=== PATIENT | male | born 1975 | race Hispanic/Latino ===

== ENCOUNTER 2022-04-23 17:16 | Emergency (ER) | payer SELFPAY ==
[~2022-04-23] VITALS: Ht 170.2 cm; Wt 75.5 kg
[2022-04-23] MEDS ORDERED: LIDOCAINE 1% 5ML-MPF INJ ONE (17:45)
[2022-04-23] MEDS ORDERED: TETANUS/DIPHTHERIA TOX ADULT 0.5 ML SYR IM ONE (17:45)
[2022-04-23] MEDS ORDERED: LIDOCAINE HCL 1% LOCAL INJ 20 ML VIAL ONE (18:26)
[2022-04-23] MEDS ORDERED: TETANUS/DIPHTHERIA TOX ADULT 0.5 ML SYR ONE (18:45)
[2022-04-23] MEDS ORDERED: Vancomycin IV 1 GM in SODIUM CHLORIDE 0.9% 250ML 250 ML IV ONE (18:45)
[2022-04-23] MEDS ORDERED: SODIUM CHLORIDE 0.9% 100 ML ONE (19:05)
[2022-04-23] MEDS ORDERED: Vancomycin IV 1 GM VIAL ONE (19:05)
[2022-04-23] MEDS ORDERED: SODIUM CHLORIDE 0.9% 250ML 250 ML ONE (19:05)
[2022-04-23] MEDS ORDERED: PIPERACILLIN/TAZOBACTAM 3.375 GM VIAL ONE (19:05)
== END 2022-04-23 19:50 | disposition other institution (70) ==
LOC: FSED 17:22
DX: S05.8X1A Other injuries of right eye and orbit, initial encounter (principal); W25.XXXA Contact with sharp glass, initial encounter; Y92.098 Other place in other non-institutional residence as the place of occurrence of the external cause
CPT/HCPCS: 80053; 85025; 90471; 90714; 96372; 99284; J2001; J2543; J3370; J7050 ×2